=== PATIENT | male | born 1960 | race Caucasian/White ===

== ENCOUNTER 2023-03-27 21:28 | Emergency (ER) | payer OTHER ==
[~2023-03-27] VITALS: Ht 188 cm; Wt 88.5 kg
[2023-03-27 21:43] VITALS: BP 186/97
[2023-03-27] MEDS ORDERED: CEPH500 PO (21:48)
== END 2023-03-27 21:49 | disposition home or self-care (01) ==
LOC: ER 21:28
DX: L03.114 Cellulitis of left upper limb (principal); L02.414 Cutaneous abscess of left upper limb
CPT/HCPCS: 99282